=== PATIENT | female | born 1990 | race American Indian/Alaskan Native ===

== ENCOUNTER 2016-07-17 22:02 | Emergency (ER) | payer MEDICAID ==
[2016-07-17 22:21] VITALS: BP 130/77
[2016-07-17] MEDS ORDERED: MOTRIN PO ONE (23:02)
--- NOTE | 2016-07-17 23:05 | Emergency Department Report ---
- General Chief complaint: Skin/Abscess/Foreign Body Stated complaint: SPIDER BITE Time Seen by Provider: 07/17/16 23:00 Source: patient Mode of arrival: Ambulatory Limitations: No Limitations - History of Present Illness Initial comments: 26 year old female c/o insect bite to her right wrist that she noticed today. She denies any fever, nausea or vomiting. She has no past medical history. Currently takes no medication. Allergic to sulfa meds. complaint: insect bite/sting - Related Data Allergies Allergy/AdvReac Type Severity Reaction Status Date / Time Sulfa (Sulfonamide Allergy Unknown Verified 07/17/16 22:21 Antibiotics) Abscess Boil HPI - HPI Chief Complaint: Skin/Abscess/Foreign Body Stated Complaint: SPIDER BITE Time Seen by Provider: 07/17/16 23:00 Allergies/Adverse Reactions: Allergies Allergy/AdvReac Type Severity Reaction Status Date / Time Sulfa (Sulfonamide Allergy Unknown Verified 07/17/16 22:21 Antibiotics) ED Review of Systems ROS: Stated complaint: SPIDER BITE Other details as noted in HPI Constitutional: denies: chills, fever Eyes: denies: eye pain, eye discharge, vision change ENT: denies: ear pain, throat pain Respiratory: denies: cough, shortness of breath, wheezing Cardiovascular: denies: chest pain, palpitations Endocrine: no symptoms reported Gastrointestinal: denies: abdominal pain, nausea, diarrhea Genitourinary: denies: urgency, dysuria, discharge Musculoskeletal: denies: back pain, joint swelling, arthralgia Skin: lesions ED Past Medical Hx - Past Medical History Previous Medical History?: No - Surgical History Additional Surgical History: D&C - Social History Smoking Status: Never Smoker Substance Use Type: None ED Physical Exam - General Limitations: No Limitations General appearance: alert, in no apparent distress - Head Head exam: Present: atraumatic, normocephalic - Eye Eye exam: Present: normal appearance - Neurological Exam Neurological exam: Present: alert, oriented X3 - Psychiatric Psychiatric exam: Present: normal affect, normal mood - Skin Skin exam: Present: warm, dry, intact, other (raised lesion with the point on top nonerythematous base , appears to be an insect bite no drainage lesion does not feel warm to touch mild tenderness to palpate) ED Course Vital Signs 07/17/16 22:18 Temperature 98.6 F Pulse Rate 72 Respiratory 18 Rate Blood Pressure 130/77 O2 Sat by Pulse 100 Oximetry ED Medical Decision Making - Medical Decision Making This patient has been evaluated by this provider. I discussed with patient that this appears to be a insect bite. That there is no signs of infection does know surrounding tissue of redness does have a little bit of swelling secondary to the bite. Discussed patient to return if there is any swelling. Fever skin turns purplish or black. Patient verbalized understanding Critical care attestation.: If time is entered above; I have spent that time in minutes in the direct care of this critically ill patient, excluding procedure time. ED Disposition Clinical Impression: Insect bite Qualifiers: Encounter type: initial encounter Qualified Code(s): W57.XXXA - Bitten or stung by nonvenomous insect and other nonvenomous arthropods, initial encounter Disposition: DISCHARGED TO HOME OR SELFCARE Is pt being admited?: No Does the pt Need Aspirin: No Condition: Stable Instructions: Insect Bite or Sting (ED) Additional Instructions: Please return to the emergency room if they're insect bites gets worse or starts to change colors purple or black patient develops a fever, nausea or vomiting. Referrals: PRIMARY CARE, [Primary Care Provider] - 3-5 Days
[2016-07-17] MEDS ORDERED: TRIPLE ANTIBIOTIC TP ONE (23:20)
[2016-07-18] MEDS ORDERED: TRIPLE ANTIBIOTIC TP SCH (08:00)
== END 2016-07-17 23:22 | disposition home or self-care (01) ==
LOC: ED 22:02
DX: S60.861A Insect bite (nonvenomous) of right wrist, initial encounter (principal); Z88.2 Allergy status to sulfonamides; W57.XXXA Bitten or stung by nonvenomous insect and other nonvenomous arthropods, initial encounter; Y93.89 Activity, other specified; Y92.89 Other specified places as the place of occurrence of the external cause; Y99.8 Other external cause status
CPT/HCPCS: 99282; A6250

== ENCOUNTER 2016-10-27 09:46 | Emergency (ER) | payer SELFPAY ==
[2016-10-27 09:53] VITALS: BP 112/68
[2016-10-27 11:04] LABS: Bacteria,Urine 1+ /HPF (Negative); Bilirubin,Urine NEG (Negative); Blood,Urine LG (Negative); Ketones,Urine NEG (Negative); Leukocyte Esterase,Urine SM (Negative); Mucus,Urine 3+ /HPF; Nitrite,Urine NEG (Negative); Urobilinogen,Urine < 2.0 mg/dL (<2.0)
[2016-10-27] MEDS ORDERED: ZITHROMAX PO ONE (12:28)
[2016-10-27] MEDS ORDERED: XYLOCAINE 1% MPF 5 mL INFILTRATI ONE (12:28)
[2016-10-27] MEDS ORDERED: ROCEPHIN IM ONE (12:28)
--- NOTE | 2016-10-27 13:22 | Emergency Department Report ---
Entered by LAURIE LEE, acting as scribe for INDIGO HUERTA PA. ED Female HPI - General Chief complaint: Urogenital-Female Stated complaint: POSS STD Time Seen by Provider: 10/27/16 11:32 Source: patient Mode of arrival: Ambulatory Limitations: No Limitations - History of Present Illness Initial comments: 26 y/o female with no significant PMHx presents to the ED c/o a known STD exposure that began 3days ago. Patient states her boyfriend was recently diagnosed with Chlamydia, and she wants to be checked and treated for Chlamydia. Reports associated vaginal odor, but she denies significant vaginal discharge, vaginal bleeding, abdominal pain, nausea, vomiting, fever, and chills. Denies Hx of STDs. LMP 10/13/2016. Allergic to sulfa. Complaint: possible STD Onset/Timin -: days(s) Severity scale (0 -10): 0 Improves with: medication Worsens with: intercourse Are you Now?: No Last Menstrual Period: 10/13/16 EDC: 07/20/17 Associated Symptoms: denies other symptoms, other (vaginal odor). denies: vaginal discharge, vaginal bleeding, abdominal pain, nausea/vomiting, fever/ chills, headaches, loss of appetite, dysuria, hematuria, rash, seizure, shortness of breath, syncope, weakness - Related Data Sexually active: Yes (without protection) Previous Rx's Medication Instructions Recorded Last Taken Type Clotrimazole [[id number]-[id number]] 1 applicator VG QHS #1 cream.appl 10/27/16 Unknown Rx Allergies Allergy/AdvReac Type Severity Reaction Status Date / Time Sulfa (Sulfonamide Allergy Unknown Verified 07/17/16 22:21 Antibiotics) ED Review of Systems Comment: All other systems reviewed and negative Constitutional: denies: chills, fever Eyes: denies: eye pain, eye discharge, vision change ENT: denies: ear pain, throat pain Respiratory: denies: cough, shortness of breath, wheezing Cardiovascular: denies: chest pain, palpitations Endocrine: no symptoms reported Gastrointestinal: denies: abdominal pain, nausea, vomiting, diarrhea Genitourinary: other (vaginal odor). denies: urgency, dysuria, frequency, hematuria, discharge, abnormal menses, dyspareunia Musculoskeletal: denies: back pain, joint swelling, arthralgia Skin: denies: rash, lesions Neurological: denies: headache, weakness, paresthesias ED Past Medical Hx - Past Medical History Previous Medical History?: No - Surgical History Past Surgical History?: Yes Additional Surgical History: D&C - Family History Family history: no significant - Social History Smoking Status: Never Smoker Substance Use Type: None, Alcohol - Medications Home Medications: Home Medications Medication Instructions Recorded Confirmed Last Taken Type Clotrimazole [[id number]] 1 applicator VG QHS #1 cream.appl 10/27/16 Unknown Rx ED Physical Exam - General Limitations: No Limitations General appearance: alert, in no apparent distress - Head Head exam: Present: atraumatic, normocephalic - Eye Eye exam: Present: normal appearance, PERRL, EOMI Pupils: Present: normal accommodation - ENT ENT exam: Present: normal exam, mucous membranes moist, normal external ear exam - Neck Neck exam: Present: normal inspection, full ROM. Absent: tenderness, meningismus, lymphadenopathy - Respiratory Respiratory exam: Present: normal lung sounds bilaterally. Absent: respiratory distress, wheezes, rales, rhonchi, stridor, accessory muscle use, decreased breath sounds - Cardiovascular Cardiovascular Exam: Present: regular rate, normal rhythm, normal heart sounds. Absent: systolic murmur, diastolic murmur, rubs, gallop - GI/Abdominal GI/Abdominal exam: Present: soft, normal bowel sounds. Absent: distended, tenderness, guarding, rebound, rigid - External exam: Present: normal external exam Speculum exam: Present: vaginal discharge (whitish vaginal discharge) Bi-manual exam: Present: normal bi-manual exam - Extremities Exam Extremities exam: Present: normal inspection, full ROM, normal capillary refill - Back Exam Back exam: Present: normal inspection, full ROM. Absent: tenderness, CVA tenderness (R), CVA tenderness (L) - Neurological Exam Neurological exam: Present: alert, oriented X3, normal gait - Psychiatric Psychiatric exam: Present: normal affect, normal mood - Skin Skin exam: Present: warm, dry, intact. Absent: rash ED Course Vital Signs 10/27/16 09:51 Temperature 99 F Pulse Rate 80 Respiratory 18 Rate Blood Pressure 112/68 O2 Sat by Pulse 99 Oximetry ED Medical Decision Making - Medical Decision Making A/P: Exposure to to chlamydia, possible 1- treatment with azithromycin and ceftriaxone. Treatment with clotrimazole 2- follow-up with [facility] and primary care 3- GC cultures sent 4- urinalysis is unremarkable patient is not ED Disposition Clinical Impression: Cervicitis, STD exposure Disposition: DC- TO HOME OR SELFCARE Is pt being admited?: No Does the pt Need Aspirin: No Condition: Stable Instructions: Cervicitis (ED), Chlamydia Infection (ED), Vulvovaginal Candidiasis (ED) Prescriptions: Clotrimazole [[id number]] 1 applicator VG QHS #1 cream.appl Referrals: [facility] [Provider Group] - 3-5 Days [facility] [Outside] - 3-5 Days Forms: STI Treatment and Prevention, Work/School Release Form(ED) This documentation as recorded by the JESUS lozano JASMINE,accurately reflects the service I personally performed and the decisions made by ,INDIGO HUERTA PA.
== END 2016-10-27 13:44 | disposition home or self-care (01) ==
LOC: ED 09:46
DX: N72 Inflammatory disease of cervix uteri (principal); Z20.2 Contact with and (suspected) exposure to infections with a predominantly sexual mode of transmission; Z88.2 Allergy status to sulfonamides
CPT/HCPCS: 81001; 81025; 87210; 87591; 96372; 99284; J0696

== ENCOUNTER 2016-12-03 21:30 | Emergency (ER) | payer SELFPAY ==
[2016-12-03 21:38] VITALS: BP 146/101
[2016-12-03 22:18] LABS: Bilirubin,Urine NEG (Negative); Blood,Urine NEG (Negative); Ketones,Urine NEG (Negative); Leukocyte Esterase,Urine NEG (Negative); Mucus,Urine 3+ /HPF; Nitrite,Urine NEG (Negative); Urobilinogen,Urine < 2.0 mg/dL (<2.0)
== END 2016-12-04 00:26 | disposition left against medical advice (07) ==
LOC: ED 21:30
DX: Z53.21 Procedure and treatment not carried out due to patient leaving prior to being seen by health care provider (principal)
CPT/HCPCS: 81001; 87086

== ENCOUNTER 2019-02-02 20:33 | Outpatient (CLI) | payer MEDICAID ==
[2019-02-02 21:24] VITALS: BP 119/72
[2019-02-02] MEDS ORDERED: LACTATED RINGERS 500 ML IV ONE (21:26)
[2019-02-02 23:00] LABS: Bacteria,Urine 1+ /HPF (Negative); Bilirubin,Urine NEG (Negative); Blood,Urine NEG (Negative); Color,Urine Yellow (Yellow); Mucus,Urine FEW /HPF; Protein,Urine <15 mg/dL mg/dL (Negative)
== END 2019-02-03 00:32 | disposition home or self-care (01) ==
LOC: TRG 20:33
PROVIDERS: ATTEND Obstetrics & Gynecology
DX: O26.893 Other specified pregnancy related conditions, third trimester (principal); Z3A.33 33 weeks gestation of pregnancy
CPT/HCPCS: 59025; 81001

== ENCOUNTER 2019-02-08 22:03 | Inpatient (IN) | payer MEDICAID ==
[~2019-02-08 22:03] MED LIST: ACETAMINOPHEN 325 MG TAB PO PRN; DOCUSATE SODIUM 100 MG CAP PO PRN; ONDANSETRON 4 MG/2 ML INJ IV PRN; diphenhydrAMINE 25 MG CAP PO PRN
[2019-02-08] MEDS ORDERED: LACTATED RINGERS 1,000 ML IV SCH (23:45)
--- NOTE | 2019-02-08 23:50 | History and Physical Report ---
History of Present Illness Date of examination: 02/08/19 Chief complaint: SROM History of present illness: Pt is a 28yo BF EDC 03/19/18; EGA 34 3/7 weeks presents to [facility] L&D complaining of SROM clear fluid @ 21:45 She denies contractions or bleeding. She received care at [place] and course has been unremarkable. records are not available and GBS is unknown. Past History Past Medical History: no pertinent history Past Surgical History: no surgical history Family/Genetic History: none Social history: no significant social history, single - Obstetrical History Expected Date of Delivery: 03/19/19 Actual Gestation: 34 Week(s) 4 Day(s) : 4 Medications and Allergies Allergies Allergy/AdvReac Type Severity Reaction Status Date / Time Sulfa (Sulfonamide Allergy Unknown Verified 07/17/16 22:21 Antibiotics) Home Medications Medication Instructions Recorded Confirmed Last Taken Type Clotrimazole [Cphx-Aqwqtyyp-0] 1 applicator VG QHS #1 cream.appl 10/27/16 02/08/19 Unknown Rx Review of Systems All systems: negative - Physical Exam Breasts: Positive: deferred Cardiovascular: Regular rate Lungs: Positive: Clear to auscultation Abdomen: Positive: normal appearance Genitourinary (Female): Positive: normal external genitalia Vagina: Positive: normal moisture Uterus: Positive: enlarged Extremities: Positive: normal - Obstetrical FHR: category 1 Uterine Contraction Monitor Mode: External Cervical Dilatation: 0.5 (per nurse) Cervical Effacement Percentage: 0 (per nurse) station: -3 Uterine Contraction Pattern: Absent Results Result Diagrams: 02/09/19 00:43 All other labs normal. Ultrasound: report reviewed (Patel, cephalic, RON 7.7, EFW 2725gms, cervical length 3.37, FHT's 158) Assessment and Plan - Patient Problems (1) 34 weeks gestation of Onset Date: 02/08/19 Current Visit: Yes Status: Acute Plan to address problem: A: IUP @ 34 3/7 weeks PPROM P: Admit to L&D for Observation Begin IV hydration, Steroids, IV antibiotics Obtain [facility] and NICU consultation (2) premature rupture of membranes (PPROM) with onset of labor after 24 hours of rupture in third trimester, antepartum Onset Date: 02/08/19 Current Visit: Yes Status: Acute
[2019-02-08] MEDS ORDERED: ONDANSETRON 4 MG/2 ML INJ IV PRN (23:54)
[2019-02-08] MEDS ORDERED: DOCUSATE SODIUM 100 MG CAP PO PRN (23:54)
[2019-02-08] MEDS ORDERED: ACETAMINOPHEN 325 MG TAB PO PRN (23:54)
[2019-02-08] MEDS ORDERED: diphenhydrAMINE 25 MG CAP PO PRN (23:54)
--- NOTE | 2019-02-09 00:05 | Ultrasound Report ---
ULTRASOUND OBSTETRIC INDICATION: Premature rupture of membranes. Clinical Gestational Age (GA): 34 weeks, 3 days TECHNIQUE: Transabdominal. COMPARISON: None available. FINDINGS: There is a single intrauterine . Biparietal Diameter = 7.98 cm = 32 weeks, 0 day(s). Head Circumference = 31.09 cm = 34 weeks, 5 day(s). Abdominal Circumference = 31.83 cm = 35 weeks, 5 day(s). Femur Length = 7.28 cm = 37 weeks, 2 day(s). Average Ultrasound Age (AUA) = 35 weeks, 0 day(s). Heart Rate: 158 beats per minute. Estimated Weight in grams (if calculated): 2725 Position: cephalic. Cervix: Mildly dilated. Length in cm (if measured): 3.67 Placenta: anterior and free of the os. Amniotic Fluid Volume: normal Amniotic Fluid Index (RON) in cm (if calculated): 7.7. Maternal Adnexa: No significant abnormality. IMPRESSION: 1. Single, living intrauterine with estimated sonographic age of 35 weeks, 0 day(s). 2. Mild dilatation of the cervical canal may be secondary to premature rupture of membranes. Signer Name: Mauricio Quintero MD Signed: 02/09/2019 12:01 AM Workstation Name: [id number]
[2019-02-09 01:15] LABS: Basophils % (Auto) 0.2 % (0.0-1.8); Eosinophils # (Auto) 0.1 K/mm3 (0.0-0.4); Eosinophils % (Auto) 0.7 % (0.0-4.3); Hematocrit 33.4 % (30.3-42.9); Hemoglobin 11.3 gm/dl (10.1-14.3); Lymphocytes # (Auto) 2.1 K/mm3 (1.2-5.4); Lymphocytes % (Auto) 23.2 % (13.4-35.0); Mean Corpuscular HGB Conc 34 % (30-34); Mean Corpuscular Volume 90 fl (79-97); Monocytes # (Auto) 0.8 K/mm3 (0.0-0.8); Monocytes % (Auto) 8.5 % (0.0-7.3); Platelet Count 277 K/mm3 (140-440); Red Blood Count 3.72 M/mm3 (3.65-5.03)
[2019-02-09] MEDS: AMPICILLIN/NS 2 GM/100 ML 2 GM/100 ML BAG IV SCH ×4 (01:56→23:11)
[2019-02-09] MEDS: BETAMET ACET/BETAMET NA PH 6 MG/ML INJ 5 ML MDV IM SCH (02:00)
[2019-02-09] MEDS: LACTATED RINGERS 1,000 ML IV SCH ×2 (02:04→21:32)
[2019-02-09] MEDS ORDERED: BUTORPHANOL 2 MG/1 ML INJ IV ONE (02:31)
[2019-02-09] MEDS: ERYTHROMYCIN LACTOBIONATE 250 MG in SODIUM CHLORIDE 0.9% 100 ML IV SCH ×4 (03:24→22:10)
[2019-02-09] MEDS ORDERED: PRENATAL VIT27-FE FUMARATE-FOLIC ACID VIT TAB PO SCH ×2 (10:00)
[2019-02-09] MEDS ORDERED: BETAMET ACET/BETAMET NA PH 6 MG/ML INJ 5 ML MDV IM SCH (10:00)
--- NOTE | 2019-02-09 12:46 | Progress Note ---
Assessment and Plan - Patient Problems (1) 34 weeks gestation of Onset Date: 02/08/19 Current Visit: Yes Status: Acute Plan to address problem: A: IUP @ 34 4/7 weeks PPROM P: Continue Observation Continue IV hydration, Steroids, IV antibiotics Obtain [facility] and NICU consultation (2) premature rupture of membranes (PPROM) with onset of labor after 24 hours of rupture in third trimester, antepartum Onset Date: 02/08/19 Current Visit: Yes Status: Acute Subjective - Subjective Date of service: 02/09/19 Principal diagnosis: IUP @ 34 4/7 weeks; PPROM Interval history: Pt is a 28yo BF EDC 03/19/18; EGA 34 4/7 weeks presented to [facility] L&D complaining of SROM clear fluid @ 21:45 02/08/19. She denies contractions or bleeding. She received care at [place] and course has been unremarkable. records are not available and GBS is unknown. She is currently on IV Ampicillin and received 1st dose of steroids. She is feeling well with only occasional contractions. Patient reports: loss of fluid, movement normal, contractions, no new complaints, no vaginal bleeding Objective - Vital Signs Vital Signs: Vital Signs - 12hr 02/09/19 02/09/19 02/09/19 02:42 03:34 03:38 Temperature 98.3 F Pulse Rate 82 Respiratory 18 Rate Blood Pressure 122/71 02/09/19 08:53 Temperature 97.8 F Pulse Rate 83 Respiratory Rate Blood Pressure 104/66 - Exam Breasts: deferred Abdomen: Present: normal appearance, soft Uterus: Present: normal FHR: category 1 Uterine Contraction Monitor Mode: External Uterine Contraction Pattern: Absent - Labs Labs: Abnormal Labs 02/09/19 00:43 RDW 13.0 L [place] % (Auto) 8.5 H Laboratory Results - last 24 hr 02/09/19 02/09/19 00:43 00:47 WBC 8.9 RBC 3.72 Hgb 11.3 Hct 33.4 MCV 90 MCH 30 MCHC 34 RDW 13.0 L Plt Count 277 Lymph % (Auto) 23.2 [place] % (Auto) 8.5 H Eos % (Auto) 0.7 Baso % (Auto) 0.2 Lymph # 2.1 [place] # 0.8 Eos # 0.1 Baso # 0.0 Seg Neutrophils % 67.4 Seg Neutrophils # 6.0 Blood Type O POSITIVE Antibody Screen Negative - Results US- obstetric: report reviewed
--- NOTE | 2019-02-09 14:01 | Consultation ---
History of Present Illness Consult date: 02/09/19 Requesting physician: ALESSIA FAJARDO History of present illness: HPI Ms. Ramos is a 28 y/o TAE 03/19/19 EGA 34 5/7 weeks presented with PPROM at 9:45pm 02/08/19 Denies vag bleeding pain fevers Pos leakage and occ contractions Received 1rst dose steroids 2 am Followed by [facility] for unexplained elevated MSAFP Denies complications [facility] US Vtx, EFW at 2725g, RON at 7.7 cm BPP not done EFM 130's catego I occ ctx OB history 2015 37 weeks PPROM M 6'11 VIP X 1 SAB X 1 No med ds Surg D&C All - Sulfa No STD No C/D/D 104/66 pulse 88 Abd gravid NT no pain on palpation ext nt no edema DTR 1/4 no clonus Vag per nurse .5 cm / 0/ -3 Past History Past Medical History: no pertinent history Past Surgical History: no surgical history Family/Genetic History: none - Obstetrical History : 4 Medications and Allergies Allergies Allergy/AdvReac Type Severity Reaction Status Date / Time Sulfa (Sulfonamide Allergy Unknown Verified 07/17/16 22:21 Antibiotics) Home Medications Medication Instructions Recorded Confirmed Last Taken Type Clotrimazole [Gsro-Dwomzqsx-6] 1 applicator VG QHS #1 cream.appl 10/27/16 02/08/19 Unknown Rx Active Meds: Active Medications Acetaminophen (Tylenol) 650 mg PO Q4H PRN PRN Reason: Pain MILD(1-3)/Fever >100.5/MARQUEZ Amoxicillin (Trimox) 250 mg PO Q8HR MAGUI; Protocol Stop: 02/16/19 05:59 Betamethasone Acet/Betameth SodPhos (Celestone Soluspan) 12 mg IM Q24H MAGUI Stop: 02/10/19 01:16 Last Admin: 12/13/19 02:00 Dose: 12 mg Documented by: Diphenhydramine HCl (Benadryl) 25 mg PO Q6H PRN PRN Reason: Itching Docusate Sodium (Colace) 100 mg PO Q12H PRN PRN Reason: Constipation Erythromycin (Erythromycin Base) 250 mg PO Q8HR MAGUI; Protocol Stop: 02/16/19 05:59 Lactated Ringer's (Lactated Ringers) 1,000 mls @ 125 mls/hr IV DIRECT MAGUI Last Admin: 02/09/19 02:04 Dose: 125 mls/hr Documented by: Ampicillin Sodium (Ampicillin/Ns 2 Gm/100 Ml) 2 gm in 100 mls @ 100 mls/hr IV Q6H MAGUI; Protocol Stop: 02/10/19 20:59 Last Admin: 02/09/19 08:55 Dose: 100 mls/hr Documented by: Erythromycin Lactobionate 250 (mg/ Sodium Chloride) 100 mls @ 100 mls/hr IV Q6H MAGUI; Protocol Stop: 02/10/19 21:59 Last Admin: 02/09/19 10:14 Dose: 100 mls/hr Documented by: Multivitamins/Iron/Calcium ( Vitamin) 1 each PO QDAY MAGUI Last Admin: 02/09/19 09:02 Dose: 1 each Documented by: Ondansetron HCl (Zofran) 4 mg IV Q6H PRN PRN Reason: Nausea And Vomiting - Vital Signs Vital signs: Vital Signs Resp 18 02/09/19 02:42 Temp Pulse Resp BP Pulse Ox 97.8 F 83 18 104/66 02/09/19 08:53 02/09/19 08:53 02/09/19 02:42 02/09/19 08:53 Results Result Diagrams: 02/09/19 00:43 Abnormal lab results 02/09/19 Range/Units 00:43 RDW 13.0 L (13.2-15.2) % [place] % (Auto) 8.5 H (0.0-7.3) % All other labs normal. Assessment and Plan Impression: 1. Patel IUP at 34 5/7 weeks 2. PPROM 3. Unexplained Elevated MSAFP 4. Prior H/O PPROM with other preg at 37 weeks Recommendations 1. Steroids X 2 2. Recommend Induction after steroid complete 3. BPP if not done 4. NICU consult 5. Seq Leg compressors
--- NOTE | 2019-02-09 14:22 | Progress Note ---
Assessment and Plan PPROM steroids US for BPP/RON/ position antibiotics IOL/Delivery s/p steroids or for maternal/ indication Maternal/ status reassuring overall. Cheyanne Fisher MD Subjective - Subjective Date of service: 02/09/19 Principal diagnosis: IUP @ 34 4/7 weeks; PPROM Patient reports: loss of fluid, movement normal, contractions, no new complaints, no vaginal bleeding Objective - Vital Signs Vital Signs: Vital Signs - 12hr 02/09/19 02/09/19 02/09/19 02:42 03:34 03:38 Temperature 98.3 F Pulse Rate 82 Respiratory 18 Rate Blood Pressure 122/71 02/09/19 08:53 Temperature 97.8 F Pulse Rate 83 Respiratory Rate Blood Pressure 104/66 - Exam Breasts: deferred Lungs: Clear to auscultation FHR: category 1 - Labs Labs: Abnormal Labs 02/09/19 00:43 RDW 13.0 L [place] % (Auto) 8.5 H Laboratory Results - last 24 hr 02/09/19 02/09/19 00:43 00:47 WBC 8.9 RBC 3.72 Hgb 11.3 Hct 33.4 MCV 90 MCH 30 MCHC 34 RDW 13.0 L Plt Count 277 Lymph % (Auto) 23.2 [place] % (Auto) 8.5 H Eos % (Auto) 0.7 Baso % (Auto) 0.2 Lymph # 2.1 [place] # 0.8 Eos # 0.1 Baso # 0.0 Seg Neutrophils % 67.4 Seg Neutrophils # 6.0 Blood Type O POSITIVE Antibody Screen Negative
--- NOTE | 2019-02-09 17:11 | Ultrasound Report ---
Limited OB ultrasound INDICATION: well-being FINDINGS: There is a single intrauterine in cephalic presentation. Amniotic fluid index is decreased measuring 3.8 cm. heart rate is 144 bpm. IMPRESSION: The amniotic fluid index is 3.8 cm which is decreased. BIOPHYSICAL PROFILE INDICATION: well-being COMPARISON: None FINDINGS: breathing movement: 2/2 movement: 2/2 posture and tone: 2/2 Qualitative amniotic fluid volume: 2/2 IMPRESSION: Total score for biophysical profile is 8/8 heart rate is 141 bpm Signer Name: Nick Palacios MD Signed: 02/09/2019 5:07 PM Workstation Name: [id number]
--- NOTE | 2019-02-09 20:58 | Consultation ---
Consult Note - Parent Education I met with parent(s) and discussed the following:: Need for NICU admission, Poss ible need for intubation and surfactant or other resp support, Temperature regulation, Possible need for IV fluids/TPN and IV antibiotics, Importance of providing breast milk & encouraged pumping aft delivery, Slow feeding advancement and monitoring of tolerance. NG/OG feeds, Need to monitor for jaundice Parent(s) demonstrated understanding of all the information:: Yes Assessment and Plan - Assessment Gestation:: 34 Estimated Weight: 2745g Baby's gender: Male Baby's name: Jerry Additional Comment: SROM 02/08 7069, IV antibiotics, steroids. EDC 03/19/2019 - Plan Plan: Will attend delivery if requested Please call NICU with questions
[2019-02-09] MEDS ORDERED: ERYTHROMYCIN LACTOBIONATE 250 MG in SODIUM CHLORIDE 0.9% 100 ML IV SCH ×2 (23:00)
[2019-02-09] MEDS ORDERED: AMPICILLIN/NS 2 GM/100 ML 2 GM/100 ML BAG IV SCH ×2 (23:00)
[2019-02-10] MEDS: BETAMET ACET/BETAMET NA PH 6 MG/ML INJ 5 ML MDV IM SCH (02:28)
[2019-02-10] MEDS: AMPICILLIN/NS 2 GM/100 ML 2 GM/100 ML BAG IV SCH ×4 (02:28→20:45)
[2019-02-10] MEDS: ERYTHROMYCIN LACTOBIONATE 250 MG in SODIUM CHLORIDE 0.9% 100 ML IV SCH ×2 (03:46→15:35)
--- NOTE | 2019-02-10 04:43 | Progress Note ---
Subjective - Subjective Date of service: 02/10/19 Principal diagnosis: IUP @ 34 4/7 weeks; PPROM Interval history: Patient noted to be having late decelerations to maria alejandra of 80bpm with return to baseline lasting ~1 minute with return to baseline O2,position change and fluid bolus at bedside, late decelerations improved, moderate variability continues cervix posterior, cm/70%/-2 continue to monitor, suspect early labor, plan for AOL with oxytocin if no cervical change in 2 hours c/section for maternal/ indication continue to monitor at this time overall maternal/ status reassuring at bedside Cheyanne Fisher MD Patient reports: loss of fluid, movement normal, contractions, no new complaints, no vaginal bleeding Objective - Vital Signs Vital Signs: Vital Signs - 12hr 02/09/19 02/09/19 02/09/19 16:51 19:49 22:11 Temperature 97.5 F L Pulse Rate 75 92 H Respiratory 18 Rate Blood Pressure 114/63 119/69 02/10/19 02/10/19 02/10/19 02:20 02:27 04:36 Temperature 98.5 F Pulse Rate 82 103 H Respiratory 18 Rate Blood Pressure 112/62 106/61 - Labs Labs: Abnormal Labs 02/09/19 00:43 RDW 13.0 L [place] % (Auto) 8.5 H
[2019-02-10] MEDS: LACTATED RINGERS 1,000 ML IV SCH ×3 (04:55→20:47)
[2019-02-10] MEDS ORDERED: fentaNYL 100 MCG/2 ML INJ IV ONE (05:09)
[2019-02-10] MEDS ORDERED: BUTORPHANOL 2 MG/1 ML INJ IV PRN (09:21)
--- NOTE | 2019-02-10 09:22 | Event Note ---
Date: 02/10/19 Plan for oxytocin for AOL maternal/ well being reassuring overall Cheyanne Fisher MD
[2019-02-10 09:49] LABS: Hepatitis C Virus Antibody Non-Reactive (NonReactive)
[2019-02-10] MEDS ORDERED: OXYTOCIN 20 UNIT/1000ML DRIP 20 UNITS/1,000 ML BAG IV SCH ×2 (12:00→12:57)
[2019-02-10] MEDS ORDERED: SODIUM CHLORIDE P/F VIAL 10 ML 20 ML ONE (13:05)
[2019-02-10] MEDS ORDERED: DEXMEDETOMIDINE 200 MCG/2 ML VIAL IV ONE (13:05)
[2019-02-10] MEDS ORDERED: ePHEDrine SULFATE 50 MG/1 ML INJ ONE (13:05)
[2019-02-10] MEDS ORDERED: NALOXONE 2 MG/2 ML INJ IV PRN (13:20)
[2019-02-10] MEDS ORDERED: ePHEDrine SULFATE 50 MG/1 ML INJ IV PRN (13:20)
--- NOTE | 2019-02-10 13:21 | Anesthesia Consultation ---
Anesthesia Consult and Med Hx Date of service: 02/10/19 - Airway Anesthetic Teeth Evaluation: Good ROM Head & Neck: Adequate Mental/Hyoid Distance: Adequate Mallampati Class: Class II Intubation Access Assessment: Probably Good - Pulmonary Exam CTA: Yes - Cardiac Exam Cardiac Exam: RRR - Pre-Operative Health Status ASA Pre-Surgery Classification: ASA2 Proposed Anesthetic Plan: Epidural - Pulmonary Hx Asthma: No COPD: No - Cardiovascular System Hx Hypertension: No - Central Nervous System Hx Seizures: No Hx Psychiatric Problems: No - Endocrine Hx Renal Disease: No Hx End Stage Renal Disease: No Hx Hypothyroidism: No Hx Hyperthyroidism: No - Hematic Hx Anemia: No Hx Sickle Cell Disease: No - Other Systems Hx Alcohol Use: No
[2019-02-10] MEDS ORDERED: MINERAL OIL 30 ML ORAL LIQD PO PRN (13:40)
[2019-02-10] MEDS ORDERED: fentaNYL-BUPIV 2 MCG/ML-0.125% 200 MCG/100 ML BAG EPIDURAL SCH (14:00)
[2019-02-10] MEDS ORDERED: OXYTOCIN DRIP 30 UNITS/500 ML BAG IV SCH ×2 (14:00)
--- NOTE | 2019-02-10 17:50 | Procedure Note ---
OB Delivery Note - Delivery Date of Delivery: 02/10/19 Surgeon: BARRIE LOPES Estimated blood loss: other (600ml) - Section Preop diagnosis: nonreassuring FHR tracing Postop diagnosis: same (compound presentation) section procedure: primary low transverse Disposition: PACU Complications: none - Infant A at 1 minute: 9 at 5 minutes: 9 Gender: Male (weight 6161gms)
--- NOTE | 2019-02-10 18:10 | Progress Note ---
Subjective - Subjective Date of service: 02/10/19 Principal diagnosis: IUP @ 34 4/7 weeks; PPROM Interval history: IUP at 35+ weeks PPROM S?P steroidsx2 early prolonged deceleration-resolved with fluids and position change on oxytocin for AOL cervix 3cm/80%/-2 Maternal/ status reassuring epidural adequate continue oxytocin per protocol Cheyanne Fisher MD Patient reports: loss of fluid, movement normal, contractions, no new complaints, no vaginal bleeding Objective - Vital Signs Vital Signs: Vital Signs - 12hr 02/10/19 02/10/19 02/10/19 06:13 06:18 06:23 Temperature Pulse Rate 105 H 104 H 101 H Respiratory Rate Blood Pressure 122/64 111/57 O2 Sat by Pulse 97 96 96 Oximetry 02/10/19 02/10/19 02/10/19 06:28 06:33 06:38 Temperature Pulse Rate 106 H 101 H 101 H Respiratory Rate Blood Pressure 108/57 O2 Sat by Pulse 96 96 96 Oximetry 02/10/19 02/10/19 02/10/19 08:05 08:18 10:13 Temperature 97.8 F Pulse Rate 93 H 94 H Respiratory 16 Rate Blood Pressure 106/55 O2 Sat by Pulse 97 Oximetry 02/10/19 02/10/19 02/10/19 10:14 10:18 10:23 Temperature Pulse Rate 88 92 H 94 H Respiratory Rate Blood Pressure 124/63 O2 Sat by Pulse 98 99 Oximetry 02/10/19 02/10/19 02/10/19 10:28 10:34 10:39 Temperature Pulse Rate 96 H 98 H 96 H Respiratory Rate Blood Pressure O2 Sat by Pulse 99 97 96 Oximetry 02/10/19 02/10/19 02/10/19 10:44 10:49 13:06 Temperature Pulse Rate 110 H 100 H 103 H Respiratory Rate Blood Pressure O2 Sat by Pulse 98 97 100 Oximetry 02/10/19 02/10/19 02/10/19 13:08 13:11 13:12 Temperature Pulse Rate 101 H 99 H Respiratory 16 Rate Blood Pressure 130/69 130/69 O2 Sat by Pulse 99 Oximetry 02/10/19 02/10/19 02/10/19 13:16 13:18 13:21 Temperature Pulse Rate 61 96 H 97 H Respiratory Rate Blood Pressure 117/63 118/72 112/58 O2 Sat by Pulse 82 L Oximetry - Labs Labs: Abnormal Labs 02/09/19 00:43 RDW 13.0 L [place] % (Auto) 8.5 H Laboratory Results - last 24 hr 02/10/19 02/10/19 02/10/19 05:43 05:43 05:43 Hep Bs Antigen Non-reactive Hepatitis C Antibody Non-reactive HIV 1&2 Antibody Rapid Non react HIV P24 Antigen Non react Rubella IgG Antibody Immune
[2019-02-10] MEDS ORDERED: SODIUM CHLORIDE P/F VIAL 10 ML 10 ML ONE (19:02)
[2019-02-10] MEDS ORDERED: ACETAMINOPHEN 325 MG TAB PO PRN (23:03)
[2019-02-10] MEDS ORDERED: ONDANSETRON 4 MG/2 ML INJ IV PRN (23:03)
[2019-02-10] MEDS ORDERED: MAGNESIUM HYDROXIDE (MOM) ORAL LIQD UDC PO PRN (23:03)
[2019-02-10] MEDS ORDERED: WITCH HAZEL/ GLYCERIN PAD TP PRN (23:03)
[2019-02-10] MEDS ORDERED: PROMETHAZINE 25 MG TAB PO PRN (23:03)
[2019-02-10] MEDS ORDERED: LANOLIN/ZINC/DIMETHICONE (LANSINOH) 7 GM TP PRN (23:03)
[2019-02-10] MEDS ORDERED: diphenhydrAMINE 25 MG CAP PO PRN (23:03)
[2019-02-10] MEDS ORDERED: PROMETHAZINE 25 MG RECT SUPP PR PRN (23:03)
--- NOTE | 2019-02-10 23:13 | Procedure Note ---
OB Delivery Note - Delivery Date of Delivery: 02/10/19 Surgeon: BARRIE LOPES Estimated blood loss: 300cc - Vaginal Delivery position: OA Intrapartum events: none Delivery induction: oxytocin Delivery monitor: external FHT Route of delivery: Delivery placenta: manual Delivery laceration: none Anesthesia: epidural Delivery comments: Patient pushed to delivery a viable male with weight 2427gms and 8,9 over an intact perineum. Baby bulb suctioned on the perineum, no nuchal cord, atraumatic delivery of the anterior shoulder. Baby placed on maternal abdomen for delayed cord clamping. After ~1 minute the cord was clamped and cut and baby handed to waiting nursing staff. Cord gasses obtained. An intact placenta with three vessel cord was delivered manually. The uterus was cleared of all clots and debris. Firm fundus at the completion of the procedure. Inspection of the anatomy revealed no laceration of the vagina,cervix or perineum. All sponge, needle and instrument counts correctx2. EBL 300ml. Mom and baby stable to .
[2019-02-10] MEDS ORDERED: IBUPROFEN 600 MG TAB PO SCH (23:45)
[2019-02-11] MEDS: ERYTHROMYCIN BASE 250 MG CAPSULE DR PO SCH ×3 (05:42→22:01)
[2019-02-11] MEDS: AMOXICILLIN 250 MG CAP PO SCH ×3 (05:42→22:01)
[2019-02-11] MEDS ORDERED: ERYTHROMYCIN BASE 250 MG CAPSULE DR PO SCH (06:00)
[2019-02-11] MEDS ORDERED: AMOXICILLIN 250 MG CAP PO SCH (06:00)
[2019-02-11] MEDS: HYDROcodone/ACETAMINOPHEN 5-325 MG TAB PO PRN ×3 (06:29→20:32)
[2019-02-11 11:48] LABS: Hematocrit 29.1 % (30.3-42.9); Hemoglobin 9.7 gm/dl (10.1-14.3)
--- NOTE | 2019-02-11 14:04 | Progress Note ---
Assessment and Plan A: day 1 S/P . Anemia. P: Supplement with iron. Continue current management. Subjective - Subjective Date of service: 02/11/19 Principal diagnosis: day 1 S/P Interval history: day 1 S/P . Doing well. Patient reports small amount of lochia. Patient is voiding without difficulty, ambulating well, tolerating a regular diet without nausea or vomiting. Patient reports: appetite normal, voiding normally, pain well controlled, flatus, ambulating normally, no dizzy ambulation, no nauseated [place]: doing well Objective - Vital Signs Latest vital signs: Vital Signs Temp Pulse Resp BP Pulse Ox 02/11/19 07:52 98.6 F 76 18 105/68 98 02/11/19 06:29 18 02/11/19 04:59 98.4 F 69 20 107/58 97 02/11/19 01:09 18 02/11/19 00:51 98.6 F 79 18 119/70 98 02/11/19 00:22 73 127/60 02/11/19 00:11 96 H 72 L 02/11/19 00:09 72 99 02/11/19 00:07 74 129/55 02/11/19 00:04 80 99 02/10/19 23:59 74 98 02/10/19 23:54 97 H 98 02/10/19 23:53 85 86 02/10/19 23:52 83 128/70 02/10/19 23:49 75 127/72 02/10/19 23:48 72 98 02/10/19 23:08 105 H 115/70 02/10/19 20:06 82 111/64 02/10/19 18:41 89 118/68 Intake and Output 02/10/19 02/11/19 02/11/19 23:59 07:59 15:59 Intake Total 100 360 Output Total 1300 Balance 100 -940 Intake: IV 100 AMPICILLIN/NS 2 GM/100 ML 100 2 gm In 100 ml @ 100 mls /hr IV Q6H [facility] Rx#: [id number] Intake, Free Water 360 Output: Urine 1300 Void 1300 Other: Total, Output Amount 500 Estimated Blood Loss 300 - Exam Abdomen: Present: normal appearance, soft. Absent: distention, tenderness, guarding, rigidity Uterus: Present: normal, firm, fundal height below umbilicus. Absent: bogginess, tenderness Extremities: Present: normal, edema (mild pedal edema bilaterally). Absent: tenderness - Labs Labs: Abnormal lab results 02/11/19 Range/Units 10:56 Hgb 9.7 L (10.1-14.3) gm/dl Hct 29.1 L (30.3-42.9) %
[2019-02-11] MEDS: FERROUS SULFATE 325 MG TAB PO SCH (22:01)
[2019-02-12] MEDS: HYDROcodone/ACETAMINOPHEN 5-325 MG TAB PO PRN ×2 (04:44→14:53)
[2019-02-12] MEDS: ERYTHROMYCIN BASE 250 MG CAPSULE DR PO SCH ×2 (06:08→14:53)
[2019-02-12] MEDS: AMOXICILLIN 250 MG CAP PO SCH ×2 (06:08→14:53)
--- NOTE | 2019-02-12 08:43 | Progress Note ---
Assessment and Plan A: day 2 S/P . Right leg pain. Anemia secondary to and blood loss. P: Venous doppler US of right lower extremity. Continue iron supplementation. Anticipate discharge later today or tomorrow if venous doppler of RLE is normal. Subjective - Subjective Date of service: 02/12/19 Principal diagnosis: day 2 S/P Interval history: day 2 S/P . Doing well. Patient reports small amount of lochia. Patient is voiding without difficulty, ambulating well, tolerating a regular diet without nausea or vomiting. Patient reports right leg pain. Patient denies chest pain, shortness of breath, dizziness, cough, abdominal pain, or heavy vaginal bleeding. Patient reports: appetite normal, voiding normally, flatus, ambulating normally, no dizzy ambulation, no nauseated [place]: doing well, in NICU Objective - Vital Signs Latest vital signs: Vital Signs Temp Pulse Resp BP Pulse Ox 02/12/19 05:44 18 02/12/19 04:44 18 02/11/19 23:19 98.2 F 71 20 107/66 98 02/11/19 20:32 18 Intake and Output 02/11/19 02/12/19 02/12/19 23:59 07:59 15:59 Intake Total 480 420 Balance 480 420 Intake: Intake, Free Water 480 420 Other: # Voids Void 2 1 - Exam Cardiovascular: Present: Regular rate, Normal S1, Normal S2 Lungs: Present: Clear to auscultation Abdomen: Present: normal appearance, soft, normal bowel sounds. Absent: distention, tenderness, guarding, rigidity Uterus: Present: normal, firm, fundal height below umbilicus. Absent: boggines s, tenderness Extremities: Present: normal. Absent: edema - Labs Labs: Abnormal lab results 02/11/19 Range/Units 10:56 Hgb 9.7 L (10.1-14.3) gm/dl Hct 29.1 L (30.3-42.9) %
[2019-02-12] MEDS: FERROUS SULFATE 325 MG TAB PO SCH (10:13)
--- NOTE | 2019-02-12 13:05 | Vascular Lab Report ---
DUPLEX DOPPLER LOWER EXTREMITY VEINS, RIGHT INDICATION: right leg pain; . TECHNIQUE: Duplex doppler imaging was performed through the veins of the right lower extremity using venous comp ression and other maneuvers. COMPARISON: No relevant prior imaging study available. FINDINGS: Right Common femoral vein: Negative. Right Superficial femoral vein: Negative. Right Popliteal vein: Negative. Right Calf veins: Negative. Additional findings: None.. IMPRESSION: 1. No sonographic evidence for DVT in the right lower extremity. Signer Name: Yasmani Chávez MD Signed: 02/12/2019 1:00 PM Workstation Name: [id number]
--- NOTE | 2019-02-12 16:49 | Event Note ---
Date: 02/12/19 LE doppler WNL. PT can go home. RTO 6 weeks.
[2019-02-12 19:04] VITALS: BP 123/72
--- NOTE | 2019-02-16 18:07 | Discharge Summary ---
Providers - Providers Date of Admission: 02/08/19 23:55 Date of discharge: 02/12/19 Attending physician: ALESSIA FAJARDO 02/08/19 23:54 Consult to Physician [CONS] Routine Comment: Consulting Provider: PRASANNA BURRELL Physician Instructions: Reason For Exam: IUP @ 34 week; PPROM 02/08/19 23:58 Consult to Physician [CONS] Routine Comment: Consulting Provider: ANAMARIA LUCIANO Physician Instructions: Reason For Exam: IUP @ 34 weeks; PPROM Primary care physician: DIAMOND POWDER TECHNICIAN Hospitalization Reason for admission: IUP - , other (PPROM) Delivery: Episiotomy: none Laceration: none Other procedures: none complications: none Discharge diagnosis: delivery Disposition: TO HOME OR SELFCARE Plan - Discharge Medications Prescriptions: Ferrous Sulfate [Ferrous Sulfate 324 MG] 324 mg PO QDAY #60 tablet. Ibuprofen [Motrin 600 MG tab] 600 mg PO Q6H PRN #30 tablet PRN Reason: Pain - Provider Discharge Summary Additional instructions: [] Smoking cessation referral if applicable(refer to patient education folder for contact #) [] Refer to [facility] Booklet Call your doctor immediately for: * Fever > 100.5 * Heavy vaginal bleeding ( >1 pad per hour) * Severe persistent headache * Shortness of breath * Reddened, hot, painful area to leg or breast * Drainage or odor from incision. * Keep incision clean and dry at all times and follow doctor's instructions regarding bathing/showering - Follow up plan Follow up: ALESSIA FAJARDO MD [Staff Physician] - 6 Weeks Forms: [facility] Discharge Summary
== END 2019-02-12 21:30 | disposition home or self-care (01) | DRG 775 ==
LOC: TRG 22:03 → LD 23:55 → OB 02-11 00:57
PROVIDERS: ADMIT Obstetrics & Gynecology; ATTEND Obstetrics & Gynecology
PROC: 10E0XZZ Delivery of Products of Conception, External Approach (ICD-10-PCS; principal; 2019-02-10)
PROC: 3E033VJ Introduction of Other Hormone into Peripheral Vein, Percutaneous Approach (ICD-10-PCS; 2019-02-10)
PROC: 3E0R3BZ Introduction of Anesthetic Agent into Spinal Canal, Percutaneous Approach (ICD-10-PCS; 2019-02-10)
PROC: 00HU33Z Insertion of Infusion Device into Spinal Canal, Percutaneous Approach (ICD-10-PCS; 2019-02-10)
DX: O42.113 Preterm premature rupture of membranes, onset of labor more than 24 hours following rupture, third trimester (principal); Z3A.34 34 weeks gestation of pregnancy; Z37.0 Single live birth; O60.14X0 Preterm labor third trimester with preterm delivery third trimester, not applicable or unspecified; O76 Abnormality in fetal heart rate and rhythm complicating labor and delivery; O99.02 Anemia complicating childbirth
CPT/HCPCS: 36415; 76805; 76815; 76819; 85014; 85018; 85025; 86592; 86706; 86762; 86803; 86850; 86900; 86901; 87806; 88307; G0378; J0290; J0595; J0702; J1364; J2405; J2590; J3010; J3490; J7120

== ENCOUNTER 2020-11-04 10:39 | Emergency (ER) | payer MEDICAID ==
--- NOTE | 2020-11-04 11:03 | Emergency Department Report ---
<DOMENICOCHRISTIANA BABCOCK A - Last Filed: 11/04/20 14:27> ED HPI - General Stated complaint: 10WKS/PAIN /NAUSEA Time Seen by Provider: 11/04/20 11:01 Source: patient Mode of arrival: Ambulatory Limitations: No Limitations - History of Present Illness Initial comments: 30 yo comes to ER with suprapubic abd pain. She reports being 10 weeks . No ob care this preg. G3. P2. No vag bleeding or discharge. No back pain No dysuria Ambulatory and non ill appearing on exam . MD Complaint: abdominal pain -: Gradual, days(s) Location: abdomen Severity: mild Quality: cramping Consistency: intermittent Improves with: none Worsens with: none Associated symptoms: abdominal pain. denies: nausea/vomiting, vaginal bleeding, vaginal discharge, dysuria, headache, vision changes, malaise, dysparuenia, rash, seizure, shortness of breath, syncope, weakness Vaginal bleeding: none :: Yes Number of weeks : 10 Last menstrual period: 09/11/20 Pre-maday care: none - Related Data : 3 Para: 2 Ab: 0 Previous Rx's Medication Instructions Recorded Last Taken Type Ferrous Sulfate [Ferrous Sulfate 324 mg PO QDAY #60 tablet. 02/12/19 Unknown Rx 324 MG] Ibuprofen [Motrin 600 MG tab] 600 mg PO Q6H PRN #30 tablet 02/12/19 Unknown Rx Allergies Allergy/AdvReac Type Severity Reaction Status Date / Time Sulfa (Sulfonamide Allergy Unknown Verified 07/17/16 22:21 Antibiotics) ED Review of Systems Comment: All other systems reviewed and negative ED Past Medical Hx - Past Medical History Previous Medical History?: No Hx Hypertension: No Hx Congestive Heart Failure: No Hx Diabetes: No Hx Deep Vein Thrombosis: No Hx Renal Disease: No Hx Sickle Cell Disease: No Hx Seizures: No Hx Asthma: No Hx COPD: No Hx HIV: No - Surgical History Past Surgical History?: Yes Additional Surgical History: D&C - Family History Family history: no significant - Social History Smoking Status: Never Smoker Substance Use Type: None - Medications Home Medications: Home Medications Medication Instructions Recorded Confirmed Last Taken Type Ferrous Sulfate [Ferrous Sulfate 324 mg PO QDAY #60 tablet. 02/12/19 Unknown Rx 324 MG] Ibuprofen [Motrin 600 MG tab] 600 mg PO Q6H PRN #30 tablet 02/12/19 Unknown Rx ED Physical Exam - General Limitations: No Limitations General appearance: alert, in no apparent distress - Head Head exam: Present: atraumatic, normocephalic - Eye Eye exam: Present: normal appearance - ENT ENT exam: Present: mucous membranes moist - Neck Neck exam: Present: normal inspection - Respiratory Respiratory exam: Present: normal lung sounds bilaterally. Absent: respiratory distress - Cardiovascular Cardiovascular Exam: Present: regular rate, normal rhythm. Absent: systolic murmur, diastolic murmur, rubs, gallop - GI/Abdominal GI/Abdominal exam: Present: soft, normal bowel sounds - Rectal Rectal exam: Present: normal inspection - External exam: Present: normal external exam Speculum exam: Present: normal speculum exam. Absent: vaginal discharge, cervical discharge, vaginal bleeding Bi-manual exam: Present: normal bi-manual exam. Absent: cervical motion tendernes, adnexal tenderness - Extremities Exam Extremities exam: Present: normal inspection - Back Exam Back exam: Present: normal inspection - Neurological Exam Neurological exam: Present: alert, oriented X3 - Psychiatric Psychiatric exam: Present: normal affect, normal mood - Skin Skin exam: Present: warm, dry, intact, normal color. Absent: rash ED Medical Decision Making - Lab Data Result diagrams: 11/04/20 11:16 11/04/20 11:16 - Radiology Data Radiology results: report reviewed, image reviewed see report - Medical Decision Making Labs 11/04/20 11/04/20 11/04/20 11:16 11:16 11:16 WBC 7.9 RBC 4.10 Hgb 12.9 Hct 38.1 MCV 93 MCH 31 MCHC 34 RDW 13.1 L Plt Count 328 Lymph % (Auto) 37.5 H [place] % (Auto) 10.0 H Eos % (Auto) 2.0 Baso % (Auto) 0.6 Lymph # (Auto) 3.0 [place] # (Auto) 0.8 Eos # (Auto) 0.2 Baso # (Auto) 0.0 Seg Neutrophils % 49.9 Seg Neutrophils # 4.0 Sodium 133 L Potassium 4.0 Chloride 100.0 Carbon Dioxide 26 Anion Gap 11 BUN 6 L Creatinine 0.6 Estimated GFR > 60 BUN/Creatinine Ratio 10 Glucose 86 Calcium 9.7 HCG, Quant 72299 H Urine Color Urine Turbidity Urine pH Ur Specific [place] Urine Protein Urine Glucose (UA) Urine Ketones Urine Blood Urine Nitrite Urine Bilirubin Urine Urobilinogen Ur Leukocyte Esterase Urine WBC (Auto) Urine RBC (Auto) U Epithel Cells (Auto) Urine Mucus Blood Type Ord Rhogam Gestat Weeks 11/04/20 11/04/20 11:16 12:02 WBC RBC Hgb Hct MCV MCH MCHC RDW Plt Count Lymph % (Auto) [place] % (Auto) Eos % (Auto) Baso % (Auto) Lymph # (Auto) [place] # (Auto) Eos # (Auto) Baso # (Auto) Seg Neutrophils % Seg Neutrophils # Sodium Potassium Chloride Carbon Dioxide Anion Gap BUN Creatinine Estimated GFR BUN/Creatinine Ratio Glucose Calcium HCG, Quant Urine Color Yellow Urine Turbidity Slightly-cloudy Urine pH 6.0 Ur Specific [place] 1.021 Urine Protein <15 mg/dl Urine Glucose (UA) Neg Urine Ketones Neg Urine Blood Neg Urine Nitrite Neg Urine Bilirubin Neg Urine Urobilinogen 2.0 Ur Leukocyte Esterase Neg Urine WBC (Auto) 1.0 Urine RBC (Auto) 4.0 U Epithel Cells (Auto) 5.0 Urine Mucus 3+ Blood Type O POSITIVE Ord Rhogam Gestat Weeks Rh pos rh pos labs noted ua noted us noted exam completed- see EMR Pt educated on findings of testing today. She verbalizes understanding that she needs follow up with obgyn in 48 hours for serial testing. She understands she can take tylenol for any pain. On dc pt ambulatory, in nad, taking PO. Vital Signs 11/04/20 14:09 Temperature 98.6 F Pulse Rate 79 Respiratory 16 Rate Blood Pressure 107/64 O2 Sat by Pulse 100 Oximetry - Differential Diagnosis rp threatened ab; ectopic ED Disposition Clinical Impression: Abdominal pain during in first trimester Disposition: 01 HOME / SELF CARE / HOMELESS Is pt being admited?: No Does the pt Need Aspirin: No Condition: Stable Instructions: Abdominal Pain (ED) Additional Instructions: pelvic rest tylenol for pain follow up with obgyn in 48 hours for repeat testing referral below Referrals: GUERITA RICHARDSON MD [Staff Physician] - 3-5 Days Time of Disposition: 13:23 <CECELIA MOORE - Last Filed: 11/08/20 01:16> ED Review of Systems ROS: Stated complaint: 10WKS/PAIN /NAUSEA Other details as noted in HPI ED Course Vital Signs 11/04/20 14:09 Temperature 98.6 F Pulse Rate 79 Respiratory 16 Rate Blood Pressure 107/64 O2 Sat by Pulse 100 Oximetry ED Medical Decision Making - Lab Data Result diagrams: 11/04/20 11:16 11/04/20 11:16 Vital Signs 11/04/20 14:09 Temperature 98.6 F Pulse Rate 79 Respiratory 16 Rate Blood Pressure 107/64 O2 Sat by Pulse 100 Oximetry Lab Results 11/04/20 11/04/20 11/04/20 Range/Units 11:16 11:16 11:16 WBC 7.9 (4.5-11.0) K/mm3 RBC 4.10 (3.65-5.03) M/mm3 Hgb 12.9 (10.1-14.3) gm/dl Hct 38.1 (30.3-42.9) % MCV 93 (79-97) fl MCH 31 (28-32) pg MCHC 34 (30-34) % RDW 13.1 L (13.2-15.2) % Plt Count 328 (140-440) K/mm3 Lymph % (Auto) 37.5 H (13.4-35.0) % [place] % (Auto) 10.0 H (0.0-7.3) % Eos % (Auto) 2.0 (0.0-4.3) % Baso % (Auto) 0.6 (0.0-1.8) % Lymph # (Auto) 3.0 (1.2-5.4) K/mm3 [place] # (Auto) 0.8 (0.0-0.8) K/mm3 Eos # (Auto) 0.2 (0.0-0.4) K/mm3 Baso # (Auto) 0.0 (0.0-0.1) K/mm3 Seg Neutrophils % 49.9 (40.0-70.0) % Seg Neutrophils # 4.0 (1.8-7.7) K/mm3 Sodium 133 L (137-145) mmol/L Potassium 4.0 (3.6-5.0) mmol/L Chloride 100.0 (98-107) mmol/L Carbon Dioxide 26 (22-30) mmol/L Anion Gap 11 mmol/L BUN 6 L (7-17) mg/dL Creatinine 0.6 (0.6-1.2) mg/dL Estimated GFR > 60 ml/min BUN/Creatinine Ratio 10 % Glucose 86 (65-100) mg/dL Calcium 9.7 (8.4-10.2) mg/dL HCG, Quant 10822 H (0-4) mIU/mL Urine Color (Yellow) Urine Turbidity (Clear) Urine pH (5.0-7.0) Ur Specific [place] (1.003-1.030) Urine Protein (Negative) mg/dL Urine Glucose (UA) (Negative) mg/dL Urine Ketones (Negative) mg/dL Urine Blood (Negative) Urine Nitrite (Negative) Urine Bilirubin (Negative) Urine Urobilinogen (<2.0) mg/dL Ur Leukocyte Esterase (Negative) Urine WBC (Auto) (0.0-6.0) /HPF Urine RBC (Auto) (0.0-6.0) /HPF U Epithel Cells (Auto) (0-13.0) /HPF Urine Mucus /HPF Blood Type Ord Rhogam Gestat Weeks WEEKS 11/04/20 11/04/20 Range/Units 11:16 12:02 WBC (4.5-11.0) K/mm3 RBC (3.65-5.03) M/mm3 Hgb (10.1-14.3) gm/dl Hct (30.3-42.9) % MCV (79-97) fl MCH (28-32) pg MCHC (30-34) % RDW (13.2-15.2) % Plt Count (140-440) K/mm3 Lymph % (Auto) (13.4-35.0) % [place] % (Auto) (0.0-7.3) % Eos % (Auto) (0.0-4.3) % Baso % (Auto) (0.0-1.8) % Lymph # (Auto) (1.2-5.4) K/mm3 [place] # (Auto) (0.0-0.8) K/mm3 Eos # (Auto) (0.0-0.4) K/mm3 Baso # (Auto) (0.0-0.1) K/mm3 Seg Neutrophils % (40.0-70.0) % Seg Neutrophils # (1.8-7.7) K/mm3 Sodium (137-145) mmol/L Potassium (3.6-5.0) mmol/L Chloride (98-107) mmol/L Carbon Dioxide (22-30) mmol/L Anion Gap mmol/L BUN (7-17) mg/dL Creatinine (0.6-1.2) mg/dL Estimated GFR ml/min BUN/Creatinine Ratio % Glucose (65-100) mg/dL Calcium (8.4-10.2) mg/dL HCG, Quant (0-4) mIU/mL Urine Color Yellow (Yellow) Urine Turbidity Slightly-cloudy (Clear) Urine pH 6.0 (5.0-7.0) Ur Specific [place] 1.021 (1.003-1.030) Urine Protein <15 mg/dl (Negative) mg/dL Urine Glucose (UA) Neg (Negative) mg/dL Urine Ketones Neg (Negative) mg/dL Urine Blood Neg (Negative) Urine Nitrite Neg (Negative) Urine Bilirubin Neg (Negative) Urine Urobilinogen 2.0 (<2.0) mg/dL Ur Leukocyte Esterase Neg (Negative) Urine WBC (Auto) 1.0 (0.0-6.0) /HPF Urine RBC (Auto) 4.0 (0.0-6.0) /HPF U Epithel Cells (Auto) 5.0 (0-13.0) /HPF Urine Mucus 3+ /HPF Blood Type O POSITIVE Ord Rhogam Gestat Weeks Rh pos WEEKS - Radiology Data Radiology results: report reviewed, image reviewed [facility] [address] [id number] Ultrasound Report Signed Patient: CHRISS LEBRON MR#: [id number] : 1990 Acct:[id number] Age/Sex: 30 / F ADM Date: 11/04/20 Loc: ED Attending Dr: Ordering Physician: CHRISTIANA HERNANDEZ Date of Service: 11/04/20 Procedure(s): US OB <= 14 weeks fetus Accession Number(s): [id number] cc: CHRISTIANA HERNANDEZ . ULTRASOUND OBSTETRIC REASON FOR EXAM: vag bleed in preg TECHNIQUE: Transabdominal and transvaginal ultrasound was performed to evaluate a first trimester . COMPARISON: None available. FINDINGS: FINDINGS: The pole, yolk sac, and gestational sac are normal in appearance. [place]-rump length: 14.8 mm. This corresponds with a gestational age of 7 weeks 6 days. heart rate: 169 bpm Perigestational hemorrhage: No evidence of perigestational hemorrhage on the provided images. MATERNAL FINDINGS: The uterus demonstrates otherwise unremarkable sonographic appearance.. The right ovary demonstrates a normal sonographic appearance. The left ovary demonstrates a normal sonographic appearance. Cul-de-sac: There is no free fluid. IMPRESSION: No significant abnormality. Viable intrauterine . Gestatio nal age is 7 weeks 6 days. Recommend clinical screening and ultrasound follow-up in the second trimester to screen for anomalies. Signer Name: Analy Arzate MD Signed: 11/04/2020 12:07 PM Workstation Name: [id number] Transcribed By: DYLAN Dictated By: ANALY ARZATE MD Electronically Authenticated By: ANALY ARZATE MD Signed Date/Time: 11/04/20 1207 DD/ 1205 Critical care attestation.: If time is entered above; I have spent that time in minutes in the direct care of this critically ill patient, excluding procedure time. ED Disposition Is pt being admited?: No Does the pt Need Aspirin: No
--- NOTE | 2020-11-04 12:11 | Ultrasound Report ---
. ULTRASOUND OBSTETRIC REASON FOR EXAM: vag bleed in preg TECHNIQUE: Transabdominal and transvaginal ultrasound was performed to evaluate a first trimester pre gnancy. COMPARISON: None available. FINDINGS: FINDINGS: The pole, yolk sac, and gestational sac are normal in appearance. [place]-rump length: 14.8 mm. This corresponds with a gestational age of 7 weeks 6 days. heart rate: 169 bpm Perigestational hemorrhage: No evidence of perigestational hemorrhage on the provided images. MATERNAL FINDINGS: The uterus demonstrates otherwise unremarkable sonographic appearance.. The right ovary demonstrates a normal sonographic appearance. The left ovary demonstrates a normal sonographic appearance. Cul-de-sac: There is no free fluid. IMPRESSION: No significant abnormality. Viable intrauterine . Gestational age is 7 weeks 6 days. Recommend clinical screening and ul trasound follow-up in the second trimester to screen for anomalies. Signer Name: Eduardo Arzate MD Signed: 11/04/2020 12:07 PM Workstation Name: [id number]
[2020-11-04 12:34] LABS: Blood Urea Nitrogen 6 mg/dL (7-17); Calcium 9.7 mg/dL (8.4-10.2); Hemolysis Index 1
[2020-11-04 12:38] LABS: Basophils % (Auto) 0.6 % (0.0-1.8); Eosinophils # (Auto) 0.2 K/mm3 (0.0-0.4); Hematocrit 38.1 % (30.3-42.9); Hemoglobin 12.9 gm/dl (10.1-14.3); Lymphocytes % (Auto) 37.5 % (13.4-35.0); Mean Corpuscular HGB Conc 34 % (30-34); Mean Corpuscular Volume 93 fl (79-97); Monocytes # (Auto) 0.8 K/mm3 (0.0-0.8); Platelet Count 328 K/mm3 (140-440); Red Cell Distribution Width 13.1 % (13.2-15.2)
[2020-11-04 13:01] LABS: BUN/Creatinine Ratio 10
[2020-11-04 13:04] LABS: Bilirubin,Urine NEG (Negative); Blood,Urine NEG (Negative); Color,Urine Yellow (Yellow); Mucus,Urine 3+ /HPF; Protein,Urine <15 mg/dL mg/dL (Negative)
[2020-11-04 14:12] VITALS: BP 107/64
== END 2020-11-04 14:15 | disposition home or self-care (01) ==
LOC: ED 10:39
DX: O26.891 Other specified pregnancy related conditions, first trimester (principal); R10.9 Unspecified abdominal pain; Z3A.10 10 weeks gestation of pregnancy; Z98.890 Other specified postprocedural states
CPT/HCPCS: 36415; 76801; 80048; 81001; 84702; 85025; 86900; 86901; 99284